=== PATIENT | female | born 1995 | race African-American/Black ===

== ENCOUNTER 2016-12-24 17:15 | Emergency (ER) | payer OTHER ==
[~2016-12-24] VITALS: Ht 175.3 cm; Wt 73.6 kg
[~2016-12-24 17:15] MED LIST: CHROMAGEN,1 CAPSULE PO; ENDOCET 5-3251 EACH PO; IBUPROFEN800 MG PO; IRON325 M1 PO; MACROBID100 MG PO; OFLOXACIN10 ML RIGHT EAR; PRENATAL LOW I1 EACH PO; PRENATAL TABLE1 EAC3 PO; VALIUM5 MG PO; ZOFRAN4 MG PO
[2016-12-24 17:45] LABS: HEMATOCRIT 35.8 % (36.0-46.0); MCH 26.7 PG (29.0-34.0); MCHC 31.8 G/DL (30.0-36.0); MCV 83.8 FL (83-99); MEAN PLAT.VOLUME 11.9 uM^3 (9.5-12.4); PLATELET COUNT 109 K/uL (156-360); RBC DIS.WIDTH-CV 13.9 % (11.8-14.6); RBC DIS.WIDTH-SD 42.1 % (39-53); RED BLOOD COUNT 4.27 M/uL (3.80-5.20); WHITE BLOOD COUNT 5.6 K/uL (4.1-10.2)
[2016-12-24 17:48] LABS: ADD MIUA? YES; BILIRUBIN NEGATIVE; BLOOD LARGE; COLOR YELLOW ((YELLOW)); GLUCOSE (STRIP) NEGATIVE; KETONES NEGATIVE; LEUKOCYTES NEGATIVE; NITRITE NEGATIVE; PROTEIN (STRIP) NEGATIVE; SPECIFIC GRAVITY 1.015 (1.000-1.030); UROBILINOGEN 0.2 MG/DL (0.2-1.0)
[2016-12-24 17:53] LABS: CHLORIDE 112 mEq/L (99-109); SODIUM 140 mEq/L (136-147)
[2016-12-24 17:55] LABS: GLUCOSE 66 mg/dL (70-99)
[2016-12-24 17:56] LABS: BACTERIA NONE SEEN /HPF; EPITHELIAL CELLS RARE /HPF; MUCUS TRACE /LPF; RED BLOOD CELLS TNTC /HPF (0-5); UCUL ADDED? NO; WHITE BLOOD CELLS 0-5 /HPF (0-5)
[2016-12-24 17:57] LABS: ANION GAP 7 MEQ/L (2-14); TOTAL BILIRUBIN 0.3 mg/dL (0.0-1.0)
[2016-12-24 17:59] LABS: ALKALINE PHOSPHATASE 75 IU/L (3-129); GFR ESTIMATE (CALCULATED) > 59 mL/min/
[2016-12-24 18:00] LABS: UREA NITROGEN (BUN) 9 mg/dL (9-23)
[2016-12-24 18:08] LABS: QUANTITATIVE HCG < 4.0 MIU/ML
[2016-12-24 21:09] VITALS: BP 133/70
== END 2016-12-24 21:12 | disposition home or self-care (01) ==
LOC: EME 17:15
DX: N92.0 Excessive and frequent menstruation with regular cycle (principal); D64.9 Anemia, unspecified; F17.200 Nicotine dependence, unspecified, uncomplicated
CPT/HCPCS: 80053; 81003; 84702; 85027; 99281; 99283

== ENCOUNTER 2017-07-03 11:49 | Emergency (ER) | payer OTHER ==
[~2017-07-03] VITALS: Ht 170.2 cm; Wt 69.5 kg
[2017-07-03 12:25] LABS: APPEARANCE CLEAR ((CLEAR)); BILIRUBIN NEGATIVE; BLOOD NEGATIVE; COLOR YELLOW ((YELLOW)); GLUCOSE (STRIP) NEGATIVE; KETONES NEGATIVE; LEUKOCYTES NEGATIVE; NITRITE NEGATIVE; PROTEIN (STRIP) NEGATIVE; SPECIFIC GRAVITY 1.015 (1.000-1.030); UCUL ADDED? NO; UROBILINOGEN 0.2 MG/DL (0.2-1.0)
[2017-07-03 12:42] LABS: HEMATOCRIT 30.8 % (36.0-46.0); HEMOGLOBIN 9.5 G/DL (11.9-15.5); MCH 24.2 PG (29.0-34.0); MCHC 30.8 G/DL (30.0-36.0); MCV 78.4 FL (83-99); PLATELET COUNT 104 K/uL (156-360); RBC DIS.WIDTH-CV 16.3 % (11.8-14.6); RBC DIS.WIDTH-SD 46.5 % (39-53); RED BLOOD COUNT 3.93 M/uL (3.80-5.20); WHITE BLOOD COUNT 7.5 K/uL (4.1-10.2)
[2017-07-03 12:49] LABS: ALBUMIN 4.1 g/dL (3.2-4.8); CHLORIDE 114 mEq/L (99-109); POTASSIUM 4.5 mEq/L (3.7-5.4); SODIUM 142 mEq/L (136-147)
[2017-07-03 12:52] LABS: GLUCOSE 90 mg/dL (70-99)
[2017-07-03 12:54] LABS: TOTAL BILIRUBIN 0.4 mg/dL (0.0-1.0)
[2017-07-03 12:55] LABS: ALKALINE PHOSPHATASE 64 IU/L (3-129); GFR ESTIMATE (CALCULATED) > 59 mL/min/
[2017-07-03 12:56] LABS: UREA NITROGEN (BUN) 8 mg/dL (9-23)
[2017-07-03 12:57] LABS: AST (GOT) 25 IU/L (2-34)
[2017-07-03 12:58] LABS: ALT (GPT) 14 IU/L (3-49)
[2017-07-03 13:07] LABS: QUANTITATIVE HCG 57.2 MIU/ML
[2017-07-03] MEDS ORDERED: COLACE100 MG PO (14:29)
[2017-07-03 14:46] VITALS: BP 132/70
== END 2017-07-03 14:47 | disposition home or self-care (01) ==
LOC: EME 11:49
DX: O99.611 Diseases of the digestive system complicating pregnancy, first trimester (principal); K59.00 Constipation, unspecified; O99.331 Smoking (tobacco) complicating pregnancy, first trimester; F17.200 Nicotine dependence, unspecified, uncomplicated; Z3A.00 Weeks of gestation of pregnancy not specified
CPT/HCPCS: 80053; 81003; 84702; 85027

== ENCOUNTER 2017-08-19 15:51 | Emergency (ER) | payer OTHER ==
[~2017-08-19] VITALS: Ht 175.3 cm; Wt 76.3 kg
[~2017-08-19 15:51] MED LIST changes: +COLACE100 MG PO
[2017-08-19 16:28] LABS: HEMATOCRIT 26.7 % (36.0-46.0); HEMOGLOBIN 8.3 G/DL (11.9-15.5); MCHC 31.1 G/DL (30.0-36.0); MCV 80.4 FL (83-99); PLATELET COUNT 165 K/uL (156-360); RBC DIS.WIDTH-SD 50.4 % (39-53); RED BLOOD COUNT 3.32 M/uL (3.80-5.20); WHITE BLOOD COUNT 6.7 K/uL (4.1-10.2)
[2017-08-19 16:51] LABS: APPEARANCE SL.HAZY ((CLEAR)); BILIRUBIN NEGATIVE; BLOOD MODERATE; COLOR YELLOW ((YELLOW)); GLUCOSE (STRIP) NEGATIVE; KETONES NEGATIVE; LEUKOCYTES TRACE; NITRITE NEGATIVE; PROTEIN (STRIP) 30; SPECIFIC GRAVITY 1.021 (1.000-1.030)
[2017-08-19 16:53] LABS: QUANTITATIVE HCG 2667.3 MIU/ML
[2017-08-19 16:57] LABS: BACTERIA RARE /HPF; EPITHELIAL CELLS RARE /HPF; MUCUS TRACE /LPF; RED BLOOD CELLS 0-5 /HPF (0-5); UCUL ADDED? YES
[2017-08-19] MEDS ORDERED: VIBRAMYCIN100 MG PO (21:02)
[2017-08-19] MEDS ORDERED: FLAGYL500 MG PO (21:02)
[2017-08-19 22:27] LABS: CHLORIDE 112 mEq/L (99-109); POTASSIUM 4.2 mEq/L (3.7-5.4); SODIUM 142 mEq/L (136-147)
[2017-08-19 22:28] LABS: GLUCOSE 86 mg/dL (70-99)
[2017-08-19 22:32] LABS: CREATININE 0.8 mg/dL (0.6-1.3); GFR ESTIMATE (CALCULATED) > 59 mL/min/
[2017-08-19 22:33] LABS: UREA NITROGEN (BUN) 7 mg/dL (9-23)
[2017-08-19 23:00] VITALS: BP 120/75
[2017-08-19 23:25] VITALS: BP 131/79
[2017-08-20 00:30] VITALS: BP 128/80
[2017-08-20 00:48] VITALS: BP 128/80
== END 2017-08-20 01:09 | disposition home or self-care (01) ==
LOC: EME 15:51
PROC: 30233N1 Transfusion of Nonautologous Red Blood Cells into Peripheral Vein, Percutaneous Approach (ICD-10-PCS; principal; 2017-08-19)
DX: O04.89 (Induced) termination of pregnancy with other complications (principal); D64.9 Anemia, unspecified; O04.5 Genital tract and pelvic infection following (induced) termination of pregnancy; N71.9 Inflammatory disease of uterus, unspecified; R06.02 Shortness of breath; Z87.891 Personal history of nicotine dependence
CPT/HCPCS: 76856; 80048; 81003; 84702; 85027; 86850; 86900; 86901; 86920; 87077; 87086; 87186; 88305; 99281; 99285; P9016

== ENCOUNTER 2017-09-01 10:09 | Day surgery (SDC) | payer OTHER ==
[~2017-09-01] VITALS: Ht 175.3 cm; Wt 73.5 kg
[~2017-09-01 10:09] MED LIST changes: +FLAGYL500 MG PO; +VIBRAMYCIN100 MG PO
[2017-09-01 10:30] VITALS: BP 117/75
[2017-09-01 10:37] LABS: HEMATOCRIT 31.8 % (36.0-46.0); HEMOGLOBIN 9.8 G/DL (11.9-15.5); MCV 80.1 FL (83-99)
[2017-09-01] MEDS ORDERED: PERCOCET 5/31 TABLET PO (11:25)
[2017-09-01 12:50] VITALS: BP 126/80
[2017-09-01 13:49] VITALS: BP 141/79
== END 2017-09-01 13:50 | disposition home or self-care (01) ==
LOC: SDC 10:09
PROVIDERS: Obstetrics & Gynecology Obstetrics
PROC: 10D17ZZ Extraction of Products of Conception, Retained, Via Natural or Artificial Opening (ICD-10-PCS; principal; 2017-09-01)
DX: O04.6 Delayed or excessive hemorrhage following (induced) termination of pregnancy (principal); D64.9 Anemia, unspecified; Z77.22 Contact with and (suspected) exposure to environmental tobacco smoke (acute) (chronic); Z87.891 Personal history of nicotine dependence
CPT/HCPCS: 85014; 85018; 88305; J0131; J0690; J1050; J1100; J1170; J1885; J2250; J2405